=== PATIENT | female | born 1995 | race Caucasian/White ===

== ENCOUNTER 2019-09-23 12:07 | Emergency (ER) | payer SELFPAY ==
--- NOTE | 2019-09-23 12:12 | NUR ---
PATIENT DECLINED CARE; SEEN BY ERMD AND CLEARED; LEFT IN [employer] CUSTODY
--- NOTE | 2019-09-23 13:15 | NUR ---
Patient in stable condition. ID arm band removed.. Opportunity for questions provided and answered.
--- NOTE | 2019-09-23 13:15 | NUR ---
Cherelle hanley in [facility] - 09/24/19 at 0801 by [facility] ERMD EVALUATION
== END 2019-09-23 13:15 ==
LOC: SED 12:07
DX: Z02.89 Encounter for other administrative examinations (principal)
CPT/HCPCS: 99283